=== PATIENT | male | born 1965 ===

== ENCOUNTER 2017-09-24 16:36 | Emergency (ER) | payer MEDICAID ==
[2017-09-24 16:41] VITALS: BMI 29.0
[2017-09-24 16:43] VITALS: BP 144/64; PULSE 55; RESP 18; TEMP 98.8; O2SAT 99
[2017-09-24] MEDS ORDERED: Bacitracin 500 Units/gm Oint Foilpak UD TOP STA (16:55)
[2017-09-24] MEDS ORDERED: Lidocaine 1% w Epi 1:100,000 Inj INJ STA (16:55)
[2017-09-24] MEDS ORDERED: Tetanus/Diphtheria Toxoids 0.5 ml Syringe IM ONE (16:55)
[2017-09-24] MEDS ORDERED: Bacitracin 500 Units/gm Oint Foilpak UD ONE (17:05)
[2017-09-24] MEDS ORDERED: Tdap Vaccine 0.5 ml Vial (10-64 yrs) IM ONE (17:05)
--- NOTE | 2017-09-24 17:42 | C.PDOC ---
History Of Present Illness 52 y/o male presents to the ER for evaluation of a laceration to the left hand which occurred today. Patient states that he cut his left hand with a knife while he was at work. Patient reports that he is not UTD with his tetanus injection. Time Seen by Provider: 09/24/17 16:54 Chief Complaint (Nursing): Abnormal Skin Integrity History Per: Patient History/Exam Limitations: no limitations Onset/Duration Of Symptoms: Hrs Current Symptoms Are (Timing): Still Present Severity: Moderate Past Medical History Reviewed: Historical Data, Nursing Documentation, Vital Signs Vital Signs: Last Vital Signs Temp 98.8 F 09/24/17 16:42 Pulse 55 L 09/24/17 16:42 Resp 18 09/24/17 16:42 BP 144/64 09/24/17 16:42 Pulse Ox 99 09/24/17 19:07 - Medical History PMH: No Chronic Diseases Surgical History: No Surg Hx Family History: States: No Known Family Hx - Social History Hx Alcohol Use: No Hx Substance Use: No - Immunization History Hx Tetanus Toxoid Vaccination: No Hx Influenza Vaccination: No Hx Pneumococcal Vaccination: No Review Of Systems Except As Marked, All Systems Reviewed And Found Negative. Skin: Positive for: Other (lacerattion to left hand) Physical Exam - Physical Exam Appears: Non-toxic, No Acute Distress Skin: Normal Color, Warm, Dry, Other (left hand: laceration to palmar aspect, 1st web space) Head: Atraumatic, Normacephalic Eye(s): bilateral: Normal Inspection Nose: Normal Oral Mucosa: Moist Neck: Supple Chest: Symmetrical Cardiovascular: Rhythm Regular Respiratory: Normal Breath Sounds, No Rales, No Rhonchi, No Wheezing Extremity: Normal ROM (left hand) Neurological/Psych: Oriented x3, Normal Speech, Normal Motor, Normal Sensation ED Course And Treatment O2 Sat by Pulse Oximetry: 99 (RA) Pulse Ox Interpretation: Normal Progress Note: Patient administered tetanus injection and treated with Keflex PO. Laceration repair performed. Patient tolerated well. Patient has been discharged and instructed to follow up with hand specialist in 2 days and return to ER for wound check up and suture removal. Laceration - Laceration Repair left hand Wound Length (In cm): 4.5 cm Description Of Wound: Linear Wound Cleansed With: Betadine, Sterile Saline Anesthesia: Lidocaine 1%, With Epi Wound Examination: Irrigated With Saline, No FB With Wound Exploration Wound Closure: Suture Suture Technique And Material Used: Nylon (10 3-0), Vicryl (6 ( 4-0) ) Wound Complexity: Intermediate Disposition - Disposition Referrals: Lea Mayer MD [Staff Provider] - Disposition: HOME/ ROUTINE Disposition Time: 17:40 Condition: STABLE Additional Instructions: Follow up with Hand specialist within 2-3 days. Wound check in 2 days. Suture removal in 14 days. 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 - Scribe Statement The provider has reviewed the documentation as recorded by the Scribe Koko Parker Provider Attestation All medical record entries made by the Scribe were at my direction and personally dictated by me. I have reviewed the chart and agree that the record accurately reflects my personal performance of the history, physical exam, medical decision making, and the department course for this patient. I have also personally directed, reviewed, and agree with the discharge instructions and disposition.
== END 2017-09-24 17:50 | disposition home or self-care (01) ==
LOC: C.ER 16:36
DX: S61.412A Laceration without foreign body of left hand, initial encounter (principal); W26.0XXA Contact with knife, initial encounter; Y92.89 Other specified places as the place of occurrence of the external cause; Y99.0 Civilian activity done for income or pay

== ENCOUNTER 2017-09-28 15:11 | Emergency (ER) | payer MEDICAID ==
[2017-09-28 15:11] VITALS: BMI 29.0
[2017-09-28 15:38] VITALS: BP 108/69; PULSE 60; RESP 18; TEMP 98.6; O2SAT 97
[2017-09-28] MEDS ORDERED: Bacitracin 500 Units/gm Oint Foilpak UD TOP ONE (16:07)
--- NOTE | 2017-09-28 16:08 | C.PDOC ---
History Of Present Illness 52 yo male, comes to ER for evaluation of a laceration on his left hand sustained 4 days ago. Patient denies any complications, fever , discharge from wound site or surrounding erythema. 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 Time Seen by Provider: 09/28/17 16:06 Chief Complaint (Nursing): Wound Check History Per: Patient History/Exam Limitations: no limitations Onset/Duration Of Symptoms: Days Ago (4) Current Symptoms Are (Timing): Still Present Location Of Injury: Left: Hand Quality Of Symptoms: denies: Painful, Itching, Swollen, Draining Additional History Per: Patient Past Medical History Reviewed: Historical Data, Nursing Documentation, Vital Signs Vital Signs: Last Vital Signs Temp 98.6 F 09/28/17 15:36 Pulse 60 09/28/17 15:36 Resp 18 09/28/17 15:36 BP 108/69 09/28/17 15:36 Pulse Ox 97 09/28/17 18:12 - Medical History PMH: No Chronic Diseases Surgical History: No Surg Hx Family History: States: No Known Family Hx - Social History Hx Alcohol Use: No Hx Substance Use: No - Immunization History Hx Tetanus Toxoid Vaccination: No Hx Influenza Vaccination: No Hx Pneumococcal Vaccination: No Review Of Systems Except As Marked, All Systems Reviewed And Found Negative. Constitutional: Negative for: Fever, Chills Skin: Positive for: Other (laceration with sutures on left hand) Physical Exam - Physical Exam Appears: Non-toxic, No Acute Distress Skin: Warm, Dry Head: Atraumatic, Normacephalic Eye(s): bilateral: Normal Inspection, EOMI Nose: Normal Oral Mucosa: Moist Neck: Normal ROM, Supple Chest: Symmetrical Respiratory: No Accessory Muscle Use Extremity: Normal ROM, No Tenderness, Capillary Refill (< 2 sec), No Deformity, No Swelling, Other (jordan aspect of the left hand with sutures intact. no surroudning erythema or discharge noted. ) Pulses: Left Radial: Normal Neurological/Psych: Oriented x3, Normal Sensation ED Course And Treatment O2 Sat by Pulse Oximetry: 97 (RA) Pulse Ox Interpretation: Normal Progress Note: Patient instructed to continue wound care and to follow up in 10 days for suture removal. Return precautions given. Disposition - Disposition Disposition: HOME/ ROUTINE Disposition Time: 16:08 Condition: STABLE Instructions: Laceration Repair With Stitches (DC) Forms: [employer] (Spanish) - Clinical Impression Clinical Impression: Hand laceration - PA / EMERGENCY COMMUNICATIONS OFFICER / Resident Statement MD/DO has reviewed & agrees with the documentation as recorded. - Scribe Statement The provider has reviewed the documentation as recorded by the Scribe (Kiera Barrow) Provider Attestation: All medical record entries made by the Scribe were at my direction and personally dictated by me. I have reviewed the chart and agree that the record accurately reflects my personal performance of the history, physical exam, medical decision making, and the department course for this patient. I have also personally directed, reviewed, and agree with the discharge instructions and disposition.
[2017-09-28] MEDS ORDERED: Bacitracin 500 Units/gm Oint Foilpak UD ONE (16:11)
== END 2017-09-28 16:26 | disposition home or self-care (01) ==
LOC: C.ER 15:11
DX: S61.412D Laceration without foreign body of left hand, subsequent encounter (principal); X58.XXXD Exposure to other specified factors, subsequent encounter

== ENCOUNTER 2017-10-16 09:00 | Emergency (ER) | payer MEDICAID ==
[2017-10-16 09:10] VITALS: BP 121/71; PULSE 64; RESP 18; TEMP 98.8; O2SAT 96; BMI 29.9
[2017-10-16] MEDS ORDERED: Bacitracin 500 Units/gm Oint Foilpak UD TOP ONE (09:14)
[2017-10-16] MEDS ORDERED: Bacitracin 500 Units/gm Oint Foilpak UD ONE (09:18)
--- NOTE | 2017-10-16 09:18 | C.PDOC ---
Time Seen by Provider: 10/16/17 09:06 Chief Complaint (Nursing): Suture/Staple Removal History Per: Patient Onset/Duration Of Symptoms: Days Ago (about 3 weeks), Laceration Current Symptoms Are (Timing): Better Location Of Injury: Left: Hand Quality Of Symptoms: denies: Painful, Swollen, Draining Severity: Mild Additional History Per: Prior Records Past Medical History Reviewed: Historical Data, Nursing Documentation, Vital Signs Vital Signs: Last Vital Signs Temp 98.8 F 10/16/17 09:04 Pulse 64 10/16/17 09:04 Resp 18 10/16/17 09:04 BP 121/71 10/16/17 09:04 Pulse Ox 96 10/16/17 09:04 - Medical History PMH: No Chronic Diseases Family History: States: Unknown Family Hx - Social History Hx Alcohol Use: No Hx Substance Use: No - Immunization History Hx Tetanus Toxoid Vaccination: No Hx Influenza Vaccination: No Hx Pneumococcal Vaccination: No Review Of Systems Except As Marked, All Systems Reviewed And Found Negative. Constitutional: Negative for: Fever, Weakness Musculoskeletal: Negative for: Arm Pain, Hand Pain Skin: Negative for: Rash Neurological: Negative for: Weakness, Numbness Physical Exam - Physical Exam Appears: Non-toxic, No Acute Distress Skin: Warm, Dry Head: Atraumatic, Normacephalic Eye(s): bilateral: PERRL Neck: Normal ROM, Supple Extremity: Normal ROM, No Tenderness, Capillary Refill (wnl), No Swelling, Other (Left palm with healing laceration closed with sutures. ) Extremity: Bilateral: Normal Color And Temperature Pulses: Left Radial: Normal Neurological/Psych: Oriented x3, Normal Motor, Normal Sensation ED Course And Treatment O2 Sat by Pulse Oximetry: 96 Pulse Ox Interpretation: Normal Progress Note: Sutures were removed by me without any difficulty. Reassessment Condition: Improved Disposition Counseled Patient/Family Regarding: Diagnosis, Need For Followup - Disposition Disposition: HOME/ ROUTINE Disposition Time: Condition: STABLE Additional Instructions: Follow up with your doctor. Return to the ER if you develop redness, swelling, discharge, fever, worsening of symptoms or if you have any other concerns. Instructions: Stitches Removal - Clinical Impression Clinical Impression: Removal of suture
== END 2017-10-16 09:21 | disposition home or self-care (01) ==
LOC: C.ER 09:00
DX: Z48.02 Encounter for removal of sutures (principal)